=== PATIENT | female | born 1960 | race Two or more races ===

== ENCOUNTER 2019-12-22 08:30 | Inpatient (IN) | payer OTHER ==
[~2019-12-22] VITALS: Ht 165.1 cm; Wt 137.4 kg
[2019-12-22] MEDS ORDERED: AMANTADINE HCL100 MG PO (10:26)
[2019-12-22] MEDS ORDERED: ZYRTEC10 MG PO (10:26)
[2019-12-22] MEDS ORDERED: FOLIC ACID PO (10:27)
[2019-12-22] MEDS ORDERED: CLONAZEPAM0.5 MG PO (10:28)
[2019-12-22] MEDS ORDERED: LOSARTAN PO (10:28)
[2019-12-22] MEDS ORDERED: SINGULAIR10 MG PO (10:29)
[2019-12-22] MEDS ORDERED: RISPERDAL2 MG PO (10:29)
[2019-12-22] MEDS ORDERED: WELLBUTRIN XL150 M1 PO (10:29)
[2019-12-22] MEDS ORDERED: FORTAMET500 MG PO (10:30)
[2019-12-31] MEDS ORDERED: FOLIC ACID0.8 M1 PO (08:35)
[2019-12-31] MEDS ORDERED: LOSARTAN-HCTZ1 EAC2 (08:36)
[2019-12-31] MEDS ORDERED: VERELAN180 MG PO (08:39)
[2020-01-01] MEDS ORDERED: INTEGRA PLUS C1 EACH PO (07:20)
[2020-01-01] MEDS ORDERED: XARELTO10 MG PO (07:20)
[2020-01-01] MEDS ORDERED: CODE1TAB37 PO (07:20)
[2020-01-01] MEDS ORDERED: BACTRIM DS TAB1 EACH PO (07:20)
== END 2020-01-01 12:07 | disposition home health service (06) | DRG 470 ==
LOC: EDSTATUS 08:30 → SURH 08:30 → ADM 08:30 → SURH 12-29 06:40 → O/R 12-29 06:40 → SURH 12-29 07:00
PROVIDERS: ADMIT Orthopaedic Surgery Sports Medicine; ATTEND Orthopaedic Surgery Sports Medicine
PROC: 0SRC0J9 Replacement of Right Knee Joint with Synthetic Substitute, Cemented, Open Approach (ICD-10-PCS; principal; 2019-12-29 07:00)
PROC: 30233N1 Transfusion of Nonautologous Red Blood Cells into Peripheral Vein, Percutaneous Approach (ICD-10-PCS; 2019-12-30)
DX: M17.11 Unilateral primary osteoarthritis, right knee (principal); I10 Essential (primary) hypertension; E66.01 Morbid (severe) obesity due to excess calories; D64.9 Anemia, unspecified

== ENCOUNTER 2021-09-07 10:30 | Inpatient (IN) | payer OTHER ==
[~2021-09-07] VITALS: Ht 165.1 cm; Wt 133.8 kg
[~2021-09-07 10:30] MED LIST: AMANTADINE HCL100 MG PO; BACTRIM DS TAB1 EACH PO; CLONAZEPAM0.5 MG PO; CODE1TAB37 PO; FOLIC ACID PO; FOLIC ACID0.8 M1 PO; FORTAMET500 MG PO; INTEGRA PLUS C1 EACH PO; LOSARTAN PO; LOSARTAN-HCTZ1 EAC2; RISPERDAL2 MG PO; SINGULAIR10 MG PO; VERELAN180 MG PO; WELLBUTRIN XL150 M1 PO; XARELTO10 MG PO; ZYRTEC10 MG PO
[2021-09-07] MEDS ORDERED: ASA325 MG PO (12:47)
[2021-09-07] MEDS ORDERED: AMANTADINE PO (12:48)
[2021-09-07] MEDS ORDERED: CATAFLAN PO (12:48)
[2021-09-07] MEDS ORDERED: RISPERDAL2 MG PO (12:49)
[2021-09-12] MEDS ORDERED: DICLOFENAC POTA25 MG (14:21)
[2021-09-14] MEDS ORDERED: BACTRIM DS TAB1 EACH PO (07:50)
[2021-09-14] MEDS ORDERED: XARELTO10 MG PO (07:50)
[2021-09-14] MEDS ORDERED: INTEGRA PLUS C1 EACH PO (07:50)
[2021-09-14] MEDS ORDERED: OXYC1TAB9 PO (07:50)
== END 2021-09-14 18:57 | DRG 470 ==
LOC: SURG 09-12 05:30 → O/R 09-12 05:30 → SURH 09-12 10:30 → SURG 09-12 18:40
PROVIDERS: ADMIT Orthopaedic Surgery Sports Medicine; ATTEND Orthopaedic Surgery Sports Medicine
PROC: 0SRD0J9 Replacement of Left Knee Joint with Synthetic Substitute, Cemented, Open Approach (ICD-10-PCS; principal; 2021-09-12 11:00)
PROC: 30233N1 Transfusion of Nonautologous Red Blood Cells into Peripheral Vein, Percutaneous Approach (ICD-10-PCS; 2021-09-14)
DX: M17.12 Unilateral primary osteoarthritis, left knee (principal); D62 Acute posthemorrhagic anemia; I10 Essential (primary) hypertension; Z20.822 Contact with and (suspected) exposure to COVID-19

== ENCOUNTER → 2025-05-23 | Emergency (ER) | payer OTHER ==
[~2025-05-23] VITALS: Ht 165.1 cm; Wt 128.8 kg
[~2025-05-23] MED LIST changes: +AMANTADINE PO; +ASA325 MG PO; +CATAFLAN PO; +DICLOFENAC POTA25 MG; +KETOROLAC TROMETHAMINE 60 MG VIAL IM ONE; +NORFLEX100MG PO; +ORPHENADRINE CITRATE 30 MG/ML AMPUL IM ONE; +ORPHENADRINE CITRATE 30 MG/ML AMPUL ONE; +OXYC1TAB9 PO
== END | disposition home or self-care (01) ==
LOC: ER 17:41
DX: M54.16 Radiculopathy, lumbar region (principal); M54.50 Low back pain, unspecified; I10 Essential (primary) hypertension; E11.9 Type 2 diabetes mellitus without complications; Z88.0 Allergy status to penicillin; Z88.5 Allergy status to narcotic agent
CPT/HCPCS: 72131; 73560; 96372; 99284; J1885; J2360